=== PATIENT | male | born 1965 | race Asian ===

== ENCOUNTER 2018-08-08 14:29 | Emergency (ER) | payer OTHER ==
[~2018-08-08] VITALS: Ht 165.1 cm; Wt 71.7 kg
[2018-08-08 14:32] VITALS: BP 147/99; Ht 165.1 cm; Wt 71.7 kg
== END 2018-08-08 15:55 | disposition home or self-care (01) ==
LOC: ED 14:29
DX: S61.211A Laceration without foreign body of left index finger without damage to nail, initial encounter (principal); W26.0XXA Contact with knife, initial encounter; Y93.E9 Activity, other interior property and clothing maintenance; Y92.89 Other specified places as the place of occurrence of the external cause; Y99.8 Other external cause status
CPT/HCPCS: 90714; J2001